=== PATIENT | female | born 1980 ===

== ENCOUNTER 2024-12-17 12:58 | Emergency (ER) | payer SELFPAY ==
--- OUTSIDE RECORDS SUMMARY | 2024-01-22 12:30 | XMS_ITS ---
Author Organization Formerly [facility] [place] ([address]) Address [address] [place] [address] Care Team Providers Care Woodenware Assembler Name Role Phone Angela Rangel Primary Care Provider UnavailAnabel Payne Unavailable [phone] Deb Pugh Unavailable [phone] REASON FOR VISIT XOLAIR Only Encounters Encounter Location Date Provider Diagnosis [facility] [address] [place] [address] 01/22/2024 Deb Pugh Plan Of Treatment No Information Progress Notes * Darryn THORNTON KDOB:[birth year] (44 yo F)Acc No.[id number]:01/22/2024 XOLAIR F/U Patient: Darryn CORDOVA Provider: TONYA Shrestha :1980 A ge:43 Y S ex:Female Date:01/22/2024 Address:[address] [facility] Pcp:Angela Rangel Subjective: * Chief Complaints: * 1 . XOLAIR Only. * Medical History: Objective: * Vitals: Assessment: Plan: * Treatment: * Billing Information: * Visit Code: * Procedure Codes: * Electronic signature of TONYA Cloud on 12/17/2024 at 03:38 PM CDT Sign off status: Pending * Provider: CHANDRAKANT ShresthaP-BC Date: 03/23/2023 Generated for Chiara potts/Joanne/Shannon on: 03:38 PM CDT
--- OUTSIDE RECORDS SUMMARY | 2024-03-26 12:30 | XMS_ITS ---
Author Organization Pending Sale To [facility] [place] ([address]) Address [address] [place] [address] Care Team Providers Care Lube Attendant Name Role Phone Angela Rangel Primary Care Provider Unavaila Anabel Singh Unavailable [phone] Torey Thorpe [phone] REASON FOR VISIT XOLAIR Only Encounters Encounter Location Date Provider Diagnosis [facility] [address] [place] [address] 03/26/2024 Torey Thorpe Plan Of Treatment No Information Progress Notes * Darryn THORNTON KDOB:[birth year] (44 yo F)Acc No.[id number]:03/26/2024 Xolair Only Patient: Darryn CORDOVA Provider: Jillian Thorpe MD :1980 A ge:43 Y S ex:Female Date:03/26/2024 Address:[address] [facility] Pcp:Angela Rangel Subjective: * Chief Complaints: * 1 . XOLAIR Only. * Medical History: Objective: * Vitals: Assessment: Plan: * Treatment: * Billing Information: * Visit Code: * Procedure Codes: * Electronic signature of Jim Thorpe MD, FAAAAI on 12/17/2024 at 03:38 PM CDT Sign off status: Pending * Provider: Jillian Thorpe MD Date: 0 03/26/2024 Generated for Chiara potts/Joanne/Shannon on: 1 03:38 PM CDT
[2024-12-17 13:21] VITALS: BP 122/76; PULSE 93; RESP 20; TEMP 36.7; O2SAT 99
--- NOTE | 2024-12-17 15:03 | ED_ITS ---
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 Patient has had dermatitis around her eyes for the last several days. She has seen her primary care physician and dolphin researcher and has undergone multiple therapies without significant improvement. She is here today because she had increased swelling in the morning although the swelling has now gone down. No signs of anaphylaxis including throat swelling difficulty breathing or GI symptoms. No visual changes Related Data Allergies Allergy/AdvReac Type Severity Reaction Status Date / Time azathioprine Allergy Severe Vomiting Verified 12/17/24 13:21 butorphanol (From Stadol) Allergy Severe Other Verified 12/17/24 13:21 hydrocodone Allergy Severe Anaphylaxis Verified 12/17/24 13:21 Sulfa (Sulfonamide Allergy Intermediate Hives Verified 12/17/24 13:21 Antibiotics) Exam Narrative: APPEARANCE: No apparent distress. Head: atraumatic. EYES: Eomi, dermatitis around the eyes bilaterally NOSE: Atraumatic NECK: Trachea midline RESPIRATORY: No increased rate of breathing clear to auscultation CARDIOVASCULAR: RRR, clear to auscultation ABDOMINAL: Non-distended soft nontender MUSCULOSKELETAl: No obvious deformities NEURO: Alert. Moving 4/4 extremities SKIN:: Warm, dry. Normal color PSYCHIATRIC: Normal affect Course Vital Signs Vital signs: Vital Signs Temperature 98.1 F 12/17/24 13:21 Pulse Rate 93 12/17/24 13:21 Respiratory Rate 20 12/17/24 13:21 Blood Pressure 122/76 12/17/24 13:21 Pulse Oximetry 99 12/17/24 13:21 Oxygen Delivery Room Air 12/17/24 13:21 Temperature 98.1 F 12/17/24 13:21 Pulse Rate 93 12/17/24 13:21 Respiratory Rate 20 12/17/24 13:21 Blood Pressure 122/76 12/17/24 13:21 Pulse Oximetry 99 12/17/24 13:21 Oxygen Delivery Room Air 12/17/24 13:21 Medical Decision Making MDM Narrative Medical decision making narrative: -Course: 44-year-old female with past cell to granulation syndrome presenting for continued allergic dermatitis around her eyes. Patient is seen multiple specialists including dolphin researcher primary care physician and her stereotyper apprentice. I do not have much to offer the patient in addition to the care she has already received. She is not in anaphylaxis and does not have any other signs of allergic reaction outside of the irritation around her eyes. The eyes do not appear infected. No concern for orbital cellulitis. She will be given a dose of IM dexamethasone and Benadryl. Patient will be discharged follow-up with her stereotyper apprentice. 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, pots syndrome, allergic reaction Vital Signs Vital Signs: Vital Signs Temperature 98.1 F 12/17/24 13:21 Pulse Rate 93 12/17/24 13:21 Respiratory Rate 20 12/17/24 13:21 Blood Pressure 122/76 12/17/24 13:21 Pulse Oximetry 99 12/17/24 13:21 Oxygen Delivery Room Air 12/17/24 13:21 Temperature 98.1 F 12/17/24 13:21 Pulse Rate 93 12/17/24 13:21 Respiratory Rate 20 12/17/24 13:21 Blood Pressure 122/76 12/17/24 13:21 Pulse Oximetry 99 12/17/24 13:21 Oxygen Delivery Room Air 12/17/24 13:21 Discharge Plan Discharge Clinical Impression: Allergic dermatitis Patient Disposition: Home Condition: Stable Instructions: Antibiotic Form, Allergies (ED) Additional Instructions: Please follow-up with your stereotyper apprentice for further management. Can not please continue the home medications you have been prescribed. If you develop throat swelling difficulty breathing syncope or GI symptoms he can return to the ED for re-evaluation. Patient Language: Anguillan Follow-up/Referrals: Yobani,Angela Lei MD [Primary Care Provider, Unknown]
[2024-12-17] MEDS: dexAMETHasone SOD PHOS INJ 10 MG/ML 1 ML VIAL IM (15:06)
--- NOTE | 2024-12-17 15:15 | PC.NURSE ---
Pt reports took 2 benadryl that she brought from home while in room. made aware.
[2024-12-17 15:19] VITALS: BP 126/84; PULSE 87; RESP 20; TEMP 36.4; O2SAT 98
--- OUTSIDE RECORDS SUMMARY | 2024-12-17 15:38 | XMS_ITS | Patient Health Record ---
Author Organization [facility] [employer] [facility] [employer] [place] ([address]) Address [address] [place] [address] Care Team Providers Care Crown Buffer Name Role Phone Angela Rangel Primary Care Provider UnavailAnabel Payne Unavailable [phone] Torey Thorpe Unavailable [phone] Deb Pugh Unavailable [phone] Allergies Allergen (clinical drug ingredient) Drug/Non Drug Allergy documented on EMR Reaction Allergy Type Onset Date Status IODINE TOPICAL (uncoded) Unknown Allergy Active Substance with sulfonamide structure and antibacterial mechanism of action (substance) SULFA (uncoded) Unknown Allergy Active azathioprine azaTHIOprine vomiting Drug Allergy A ctive Sudafed Unknown Drug Allergy Active hydrocodone HYDROcodone Unknown Drug Allergy Act milla Non-steroidal anti-inflammatory agent (FN) NSAIDs Unknown Drug Allergy Active Reason For Referral No Information Medications Medication SIG (Take, Route, Frequency, Duration) Notes Start Date End Date Status XOLAIR PREFILLED SYRINGE 150 mg/mL 300mg subcutaneously every 4 weeks Active MiraLax - DIRECTED ORALLY ONCE A DAY *Please review and pick correct strength-formula tion from [employer]sters[employer] options. If intended option is not shown, discontinue and re-order from Quick Search* Active EPINEPHRINE AUTO-INJECTOR 0.3 mg as directed intramuscularly once; Duration: 1 days Active Norethindrone 0.35 MG 1 tab(s) orally once a day Active FAMOTIDINE 40 mg 1 tab(s) orally twice a day Active CROMOLYN 20 MG/ML 10 ML ORALLY 4 TIMES A DAY *Please review for potential replacement for e-prescription and drug interaction check* Active ZYRTEC 10 mg 1 tab(s) orally twice a day Active Vitamin D3 50 MCG 1 cap(s) orally once a day Active MIRALAX - as directed orally once a day Not-Taking Vitamin C 500 MG 1 tab(s) orally once a day Active NORETHINDRONE 0.35 mg 1 tab(s) orally once a day Not-Taking Naltrexone HCl 50 MG 4.5 mg orally once a day Active VITAMIN D3 50 mcg 1 cap(s) orally once a day Not-Taking Valsartan 160 MG 1 tab(s) orally once a day Active VITAMIN C 500 mg 1 tab(s) orally once a day Not-Taking AZATHIOPRINE 100 mg 1 tab(s) orally once a day Not-Taking NALTREXONE 50 mg 4.5 mg orally once a day Not-Taking ABI 24 HOUR ALLERGY 180 mg 1 tab(s) orally once a day Not-Taking VALSARTAN 160 mg 1 tab(s) orally once a day Active azaTHIOprine 100 MG 1 tab(s) orally once a day Not-Taking Xifaxan 200 MG 2 tablets Orally Three times a day for 2 weeks. Not-Taking Abi Allergy 180 MG 1 tab(s) orally once a day Not-Taking Social History Tobacco Use: Social History Observation Description Date Details (start date - stop date) Former Smoker NA - NA Tobacco Control (Standard) Question Answer Notes Tobacco use: Former smoker Problems Problem Type SNOMED Code ICD Code Onset Dates Problem Status W/U Status Risk Notes Problem Essential hypertension (29339779) Essential (primary) hypertension (I10) Active confirmed Problem Chronic rhinitis (67630720) Chronic rhinitis (J31.0) Active confirmed Problem Hypertrophy of nasal turbinates (35933809) Hypertrophy of nasal turbinates (J34.3) Active confirmed Problem Urticaria (702342965) Other urticaria (L50.8) Active confirmed Problem Swelling of head (784853565) Localized swelling, mass and lump, head (R22.0) Active confirmed Vital Signs Respiratory Rate 17 /min 01/23/2024 Blood pressure diastolic 88 mm Hg 03/05/2024 Oximetry 99 % 03/05/2024 Height 61 in 03/05/2024 Blood pressure systolic 119 mm Hg 03/05/2024 Weight 190.4 lbs 01/23/2024 BMI 35.97 kg/m2 01/23/2024 Encounters Encounter Location Date Provider Diagnosis [address] [address] 12/26/2023 Torey Thorpe Other Urticaria L50. [address] [address] 01/23/2024 Deb Pugh Other urticaria L50. 8 ; Localized swelling, mass and lump, head R22.0 ; Hypertrophy of nasal turbinates J34.3 ; Chronic rhinitis J31.0 ; Essential (primary) hypertension I10 and Abnormal weight gain R63.[address] [address] 03/05/2024 Torey Thorpe Other Urticaria L50. [address] [address] 02/20/[address] [address] 03/05/2024 Anabel Olmstead [address] [address] 03/31/2024 Anabel Olmstead [address] [address] 07/07/2024 Anabel Olmstead [address] [address] 03/04/2024 Anabel Olmstead Assessments Encounter Date Diagnosis (ICD Code) Assessment Notes Treatment Notes Treatment Clinical Notes Section Notes 12/26/2023 Other Urticaria (ICD-10 - L50.8) 01/23/2024 Other urticaria (ICD-10 - L50.8) Darryn presents today to continue treatmet with Xolair. She was seen briefly in the allergy department at [facility], however they stopped taking her insurance. Darryn endorses a 10-year history of raised, erythematous and pruritic wheals, occasionally with associated facial or abdominal swelling. Reports she saw an counter person many years ago that told her she wasn't allergic to anything, she was then sent to GI by her PCP. 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 According to record review, Darryn has had normal tryptase levels in the past. She has not had a bone marrow biopsy. Darryn then established care at [facility], where she was slated to start Xolair for chronic spontaneous urticaria. Darryn previously reported hives 3-4 times per week, now improved with Xolair. No interval episodes in ast 4 weeks. She is currently taking Zyrtec BID and Pepcid BID. Previously did not tolerate Singulair. Also takes Cromolyn 4 times per day per Dr. Mccall. - Given the history and presenting symptoms, consider probable chronic spontaneous urticaria without angioedema vs mast cell activation syndrome vs other. - Plan to continue 4x FDA-approved dosing of antihistamines. Darryn is considering decreasing Zyrtec to daily. Recommend discussion with Dr. Mccall. - Laboratory workup showed normal tryptase. Minor variations seen in MCHC and HCT, Elevated glucose level, and LAY positive with titer 1:80. Consider rheumatology evaluation per PCP. Labs previously forwarded to PCP. - Consider obtaining tryptase level while symptoms are active. - She was educated regarding the risks/benefits/alte rnatives to Xolair. We also reviewed today 'boxed warning' for anaphylaxis as well as risk for malignancy and CV disease. She was monitored for the required 30 minute period and discharged with AIE on hand, advised to carry at all times. - Consider q 2 week dosing. Darryn feels she has has hives 8-10 days prior to when dosing is due. Encouraged to take pictures and journal for triggers. - Darryn currently carries an AIE at all times. - Return in 4 weeks for XOLAIR, 3 months for E&M 01/23/2024 Localized swelling, mass and lump, head (ICD-10 - R22.0) See plan above, continue to carry AIE at all times 03/05/2024 Other Urticaria (ICD-10 - L50.8) 01/23/2024 Hypertrophy of nasal turbinates (ICD-10 - J34.3) Darryn endorses upper airway symptoms concerning for uncontrolled atopic disease. Darryn reports having testing previously that was positive to cat, mold and ragweed. She currently takes Zyrtec and Nasacort. - Consider skin testing to aeroallergens in the future, however unable to come off antihistamines at this time. - Previously discussed sending ImmunoCaps for further evaluation - not interested at this time. 01/23/2024 Chronic rhinitis (ICD-10 - J31.0) See plan above 01/23/2024 Essential (primary) hypertension (ICD-10 - I10) BP WNL today without symptoms of urgency or emergency. Continue serial checks and follow-up with PCP 01/23/2024 Abnormal weight gain (ICD-10 - R63.5) Prior visit, reported weight gain and fluid retension. No edema noted on exam today. She reports normal cardiology workup in past, though it has been several years. - Previously encouraged to discuss with PCP and recommended cardiology evaluation. 02/20/2024 Other 12/26/2023 Other 01/23/2024 Other 03/05/2024 Other Plan Of Treatment No Information Insurance Providers Payer Name Payer Address Payer Phone Subscriber Number Group Number Insured Name Patient Relationship to Insured Coverage Start Date Coverage End Date [facility] [address] [place] [address] [id number] Roland Mccracken Spouse - patient is the spouse of the insured [id number] [address] [place] [id number] Darryn Mccracken Self - patient is the insured Medical (General) History Medical History History ICD Code Age-related osteoporosis without current pathological fracture M81.0 Essential (primary) hypertension I10 Surgical History Surgery Date(Month/Year) cholecystectomy appendectomy sterilization implants implant repair of left radius Hospitalization History Reason Date(Month/Year) see surgical history
== END 2024-12-17 15:19 | disposition home or self-care (01) ==
LOC: ANHED 15:36
PROVIDERS: Emergency Provider Emergency Medicine; PCP Family Medicine
DX: L23.9 Allergic contact dermatitis, unspecified cause (principal); D89.40 Mast cell activation, unspecified
CPT/HCPCS: 96372; 99283; J1100